=== PATIENT | male | born 1995 | race Two or more races ===

== ENCOUNTER → 2016-08-19 | Day surgery (SDC) | payer SELFPAY ==
[~2016-08-19] VITALS: Ht 175.3 cm; Wt 58.1 kg
[~2016-08-19] MED LIST: ACETAMINOPHEN INTRAVENOUS 100 ML IV ONE; BUPIVACAINE-EPI 0.25%-1:200000 50 ML VIAL. ONE; CLINDAMYCIN 600MG PREMIX 50 ML IV PRN; DEXAMETHASONE SOD PHOS 20 MG/5 ML VIAL. ONE; DOCU-27 PO; FENTANYL PF 100 MCG/2 ML VIAL. IV PRN; FENTANYL PF 100 MCG/2 ML VIAL. ONE; HYDR-2666 PO; HYDR-2678 PO; HYDROCODONE/APAP 5/325MG TABLET. PO ONE; HYDROMORPHONE 2 MG/ML VIAL. IV PRN; IV RINGERS,LACTATED 1000ML 1,000 ML IV SCH; KETOROLAC 60 MG/2 ML SYRINGE FOR OR. ONE; LIDOCAINE 1% 1 ML SYRINGE. ID PRN; LIDOCAINE 2% 100 MG/5 ML DISP.SYRIN. ONE; MIDAZOLAM HCL 2 MG/2 ML VIAL. ONE; MORPHINE SULFATE 2 MG/ML DISP.SYRIN. IV PRN; ONDA4TAB7 PO; ONDANSETRON PF 4 MG/2 ML VIAL. IV PRN; ONDANSETRON PF 4 MG/2 ML VIAL. ONE; PROCHLORPERAZINE 10 MG/2 ML VIAL. IV PRN; PROPOFOL 20 ML IV ONE; SEVOFLURANE 61 TO 120 MINUTES. IH ONE
--- NOTE | 2016-08-19 10:24 | PDOC ---
BRIEF OPERATIVE NOTE Date: Aug 19, 2016 Pre-Op Diagnosis right olecranon fx Post-Op Diagnosis same Procedure Performed open reduction internal fixation of the right olecranon Surgeon [employer] Tender Ekta MURGUIA Anesthesiologist [employer] Anesthesia Type: General Blood Loss minimal IV Fluid 1 L Urine Output 0 Specimens Obtained none Findings right olecranon fx Complications none Additional Remarks Splint in place. Do not remove until seen in the office. JESSE ADAMS Aug 19, 2016 10:24
[2016-08-19] MEDS: FENTANYL PF 100 MCG/2 ML VIAL. IV PRN ×4 (10:35→10:59)
[2016-08-19] MEDS: MORPHINE SULFATE 2 MG/ML DISP.SYRIN. IV PRN ×2 (10:39→10:50)
[2016-08-19 11:36] VITALS: BP 134/68
--- NOTE | 2016-08-26 08:20 | PDOC4 ---
Operative Note Operative Note Operative Report Preoperative Diagnosis: Right comminuted olecranon Fracture S52.021A Postoperative Diagnosis: Right comminuted olecranon Fracture S52.021A Operation Performed: Open reduction Internal Fixation Right olecranon Fracture CPT 37963 Surgeon: Daphney Lowry MD [employer] Worker: FAHAD Gordon Anesthesia: General Estimated Blood Loss: minimal Tourniquet Time: 94 minutes Implants: Synthes locking olecranon Plate Surgical Indication: The patient is a 20 year old right-hand dominant male who sustained a comminuted olecranon fracture after falling directly onto his elbow while playing soccer on concrete. The patient was informed of the severity of his injury and that he required internal fixation of his fractures. The patient understands there is a strong potentiality he would have loss of range of motion of his arm, pain and stiffness, but he would still require surgery to optimize the outcome. A detailed explanation of the proposed operative procedure was provided to the patient. The patient understands the risks of surgery include but are not limited to infection, DVT, , elbow pain, elbow stiffness, nonunion, malunion, failure of fixation, and arthritis. After having understood this procedure, the patient signed consent and was scheduled. He presents now for the above stated procedure after the risks and benefits were explained in the hospital. Description of Procedure: The patient was identified, marked, and the procedure was reconfirmed by myself prior to taking them to the operating room. IV antibiotics were given preoperatively. The patient was positioned appropriately in the left lateral decubitus position and underwent adequate general anesthesia. The right arm was prepped and draped in a standard surgical fashion. Prior to making an incision, the consent was reviewed for a final time. The posterior approach was made to the olecranon. Careful dissection down to soft tissue was performed. The fracture was located. A small fragment found and removed laterally with some of the joint surface on it. The fracture was washed out of any bony debris or soft tissue and was reduced using towel clips. An olecranon clamp was used to maintain reduction. The remainder of the reduction was visualized under fluoroscopy. Next, the shortest Synthes locking olecranon plate was placed over the fracture in a bridge type fashion. The distal triceps insertion was split to accommodate the plate. The plate positioning was once again confirmed and held in place with k-wires. Essential anatomic fixation was noted. A 3.5 mm cortical screw was used to fix the plate to bone distally. Proximally 2.7 mm locking screws were placed in the proximal fracture fragment, 3 total, using caution to remain extra-articular. More 2.7 mm screws were placed into the distal fragment and into the coronoid for fixation. A final cortical screw was placed in the most distal hole of the plate and fracture reduction and screw length was verified by fluoroscopy. The elbow was put in range of motion, found to have stability and no impingement. No instability was noted and no subluxation was noted. The incision was irrigated thoroughly, and the deep tissues were reapproximated using 2-0 vicryl suture. The triceps tendon was repaired with 0 ethibond. The skin was closed with 3-0 moncryl and a running subcuticular prolene. The incision was dressed with steris and sterile dressings. A long, well padded posterior mold splint was applied to the posterior aspect of the arm in approximately 30 degrees of flexion. Disposition: The patient was transferred to the bed and taken to the recovery room awake, alert, and in stable condition. Complications: None Post-operative Plan: He is to remain in the splint for 1 week and then follow up for suture removal. NwB x 4 weeks. He will start in therapy for ROM once the incision has healed. DAPHNEY LOWRY MD Aug 26, 2016 08:20
== END ==
LOC: SURG 07:30
PROVIDERS: ATTEND Orthopaedic Surgery
DX: S52.021A Displaced fracture of olecranon process without intraarticular extension of right ulna, initial encounter for closed fracture (principal); Y93.61 Activity, american tackle football; Y92.008 Other place in unspecified non-institutional (private) residence as the place of occurrence of the external cause; Z72.89 Other problems related to lifestyle
CPT/HCPCS: 24685; A4215; C1713; C1769; J0131; J1100; J1170; J2250; J2270; J2405; J2704; J3010; J3490; J7120; J1885